=== PATIENT | female | born 1995 | race Asian ===

== ENCOUNTER 2019-10-19 15:19 | Emergency (ER) | payer OTHER, MEDICAID ==
[2019-10-19 15:20] VITALS: BP_SYST 105
--- NOTE | 2019-10-19 15:20 | NUR ---
Patient to ER bed 03 to gown for evaluation. Side rails up.
--- NOTE | 2019-10-19 15:22 | NUR ---
PT BROUGHT BY SELF,A&OX4, PT PRESENTS TO ER WITH GENERALIZED RASH ,SOB ,POSSIBLE ALLERGIC REACTION, SKIN PINK AND WARM, CAP REFILL <3, VSS,RESPIRATIONS EVEN AND UNLABORED.
--- NOTE | 2019-10-19 15:30 | NUR ---
DR MURPHY AT BEDSIDE EXAMINING PATIENT
[2019-10-19] MEDS ORDERED: FAMOTIDINE PF 20 MG/2 ML VIAL IVP ONE (15:45)
[2019-10-19] MEDS ORDERED: NACL 0.9% 1,000 ML IV ONE (15:45)
[2019-10-19] MEDS ORDERED: methylPREDNISolone SOD SUCC/PF 62.5 MG/ML VIAL IVP ONE (15:45)
[2019-10-19] MEDS ORDERED: DIPHENHYDRAMINE INJ 50 MG/ML VIAL IVP ONE (15:45)
[2019-10-19] MEDS ORDERED: ALBUTEROL SULFATE 0.083% 2.5 MG/3 ML VIAL.NEB INH ONE (15:45)
--- NOTE | 2019-10-19 16:22 | NUR ---
PT MEDICATED ORDERED,WELL TOLERATED
--- NOTE | 2019-10-19 17:10 | NUR ---
PT STATES SHE FEELS BETTER AT THIS TIME,RESPIRATIONS EVEN AND UNLABORED, FACIAL SWELLING AND RASH IMPROVED.
[2019-10-19 18:28] VITALS: BP_SYST 118
--- NOTE | 2019-10-19 18:30 | NUR ---
Patient given written and verbal discharge instructions and verbalizes understanding. ER MD discussed with patient the results and treatment provided. Patient in stable condition. ID arm band removed. NO RX given. Patient educated on pain management and to follow up with PMD. Pain Scale 2/10 . Opportunity for questions provided and answered. Medication side effect fact sheet provided.
== END 2019-10-19 18:28 | disposition home or self-care (01) ==
LOC: SED 15:19
DX: T78.49XA Other allergy, initial encounter (principal); X58.XXXA Exposure to other specified factors, initial encounter
CPT/HCPCS: 94640; 96374; 96375; 99284